=== PATIENT | female | born 1975 | race Caucasian/White ===

== ENCOUNTER 2017-10-21 22:34 | Inpatient (IN) ==
[2017-10-21] MEDS ORDERED: 0.9 % Sodium Chloride 1,000 ML ONE (22:44)
[2017-10-21] MEDS ORDERED: *HR* Rocuronium Bromide 50 MG/5 ML VIAL IVP ONE (22:49)
[2017-10-21] MEDS ORDERED: Isovue-370 500 ML INFUS..BTL IV ONE (22:50)
[2017-10-21] MEDS ORDERED: 0.9 % Sodium Chloride 1,000 ML IVC ONE (22:50)
[2017-10-21] MEDS ORDERED: *HR* Etomidate 20 MG/10 ML AMPUL IVP ONE (22:50)
[2017-10-21] MEDS ORDERED: *HR* Midazolam HCl 5 MG/5 ML VIAL IVP ONE (22:50)
[2017-10-21] MEDS ORDERED: Naloxone 0.4 MG/ML INJ IM ONE (22:57)
[2017-10-21] MEDS ORDERED: Tdap (Boostrix) Vaccine 0.5 ML SYRINGE IM ONE (22:58)
[2017-10-21] MEDS ORDERED: Piperacillin/Tazobactam 3.375 GM in 0.9 % Sodium Chloride Mini Bag 100 ML IVPB ONE (22:58)
[2017-10-21 23:13] LABS: Bilirubin,Urine Negative (Negative); Blood,Urine Moderate (Negative); Clarity,Urine Cloudy (Clear); Color,Urine Yellow (Yellow); Glucose,Urine (UA) 100 mg/dL (Normal); Ketones,Urine 15 mg/dL (Negative); Leukocyte Esterase,Urine Negative (Negative); Nitrite,Urine Negative (Negative); PH,Urine 6.5 pH Units (5.0-8.0); Protein,Urine 100 mg/dL (Neg-Trace); Specific Gravity,Urine 1.017 (1.010-1.025); Urobilinogen,Urine Normal (Normal)
[2017-10-21 23:15] LABS: Bacteria,Urine Moderate per hpf (None-Few); Hyaline Casts,Urine Few per lpf (None-Few); Squamous Epithelial Cell,Urine Many per lpf (None-Few)
[2017-10-21 23:19] LABS: Amphetamine Screen,Urine Positive ng/mL (Cutoff=1000); Barbiturate Screen,Urine Negative ng/mL (Cutoff=200); Benzodiazepines Screen,Urine Positive ng/mL (Cutoff=200); Cannabinoid Screen,Urine Positive ng/mL (Cutoff = 50); Cocaine Screen,Urine Positive ng/mL (Cutoff= 300); Opiate Screen,Urine Positive ng/mL (Cutoff=300); Phencyclidine Screen,Urine Negative ng/mL (Cutoff=25)
--- NOTE | 2017-10-21 23:21 | Emergency Department Note ---
Overdose - [facility] Narrative Medical decision making narrative: Tamie Powell presents due to concern for overdose. Initially dropped off in a car. Initial GCS of 3 with apneic respirations. Response to Narcan however she was combative/encephalopathic and required restraint necessitating intubation for airway protection and encephalopathy. CT head and cervical spine negative. Labs reviewed with no acute derangements. Vancomycin for skin findings, Zosyn due to concern for aspiration given her mental status. Extravasation of contrast into her left arm. Admission to the intensive care unit for further management. - Lab Data Lab results reviewed: Yes I reviewed the patient's lab results. Result diagrams: 10/21/17 22:50 10/22/17 01:07 Lab Results 10/21/17 10/21/17 10/21/17 Range/Units 22:47 22:50 22:50 WBC 12.7 H (4.3-11.1) K/mcL RBC 4.02 (3.82-4.97) M/mcL Hgb 12.3 (11.5-15.4) g/dL Hct 36.3 (35.3-44.9) % MCV 90.3 (83.0-100.0) fL MCH 30.6 (28.0-33.3) pg MCHC 33.9 (31.6-35.5) g/dL RDW 12.9 (11.5-14.5) % Plt Count 238 (140-400) K/mcL MPV 10.3 (9.4-12.4) fL Immature Gran % 0.9 (0-4) % Seg Neutrophils % 79.5 % Lymphocytes % 10.4 % Monocytes % 6.1 % Eosinophils % 2.6 % Basophils % 0.5 % Neutrophils # 10.1 H (1.6-8.9) K/mcL Lymphocytes # 1.3 (0.6-4.6) K/mcL Monocytes # 0.8 (0.0-1.3) K/mcL Eosinophils # 0.3 (0.0-0.6) K/mcL Basophils # 0.1 (0.0-0.2) K/mcL Sodium Cancelled Potassium Cancelled Chloride Cancelled Carbon Dioxide Cancelled BUN Cancelled Creatinine Cancelled Est GFR ( Amer) Cancelled Est GFR (Non-Af Amer) Cancelled BUN/Creatinine Ratio Cancelled Glucose Cancelled POC Glucose 249 H (70-99) mg/dL Calculated Osmolality Cancelled Lactic Acid (0.5-2.2) mmol/L Calcium Cancelled Total Bilirubin Cancelled Direct Bilirubin Cancelled Indirect Bilirubin Cancelled AST Cancelled ALT Cancelled Alkaline Phosphatase Cancelled Creatine Kinase Cancelled Serum Total Protein Cancelled Albumin Cancelled Globulin Cancelled Albumin/Globulin Ratio Cancelled TSH 2.445 (0.340-5.600) mcIU/mL Urine Color (Yellow) Urine Clarity (Clear) Urine pH (5.0-8.0) pH Units Ur Specific [place] (1.010-1.025) Urine Protein (Neg-Trace) mg/dL Urine Glucose (UA) (Normal) mg/dL Urine Ketones (Negative) mg/dL Urine Blood (Negative) Urine Nitrite (Negative) Urine Bilirubin (Negative) Urine Urobilinogen (Normal) mg/dL Ur Leukocyte Esterase (Negative) Urine Microscopic RBC (0-3) per hpf Urine Microscopic WBC (0-3) per hpf Ur Squamous Epith Cells (None-Few) per lpf Urine Bacteria (None-Few) per hpf Hyaline Casts (None-Few) per lpf Urine Test (Negative) Salicylates < 2.5 L (15.0-30.0) mg/dL Urine Opiates Screen (Lhcfgn=336) ng/mL Acetaminophen < 10 L (10-20) mcg/mL Ur Barbiturates Screen (Vwzqrn=587) ng/mL Ur Phencyclidine Scrn (Cutoff=25) ng/mL Ur Amphetamines Screen (Zaivam=3023) ng/mL U Benzodiazepines Scrn (Oighjs=720) ng/mL Urine Cocaine Screen (Cutoff= 300) ng/mL U Marijuana (THC) Screen (Cutoff = 50) ng/mL Ethyl Alcohol < 10 (Less than 10) mg/dL Specimen Rejected 10/21/17 10/21/17 10/21/17 Range/Units 23:02 23:02 23:02 WBC (4.3-11.1) K/mcL RBC (3.82-4.97) M/mcL Hgb (11.5-15.4) g/dL Hct (35.3-44.9) % MCV (83.0-100.0) fL MCH (28.0-33.3) pg MCHC (31.6-35.5) g/dL RDW (11.5-14.5) % Plt Count (140-400) K/mcL MPV (9.4-12.4) fL Immature Gran % (0-4) % Seg Neutrophils % % Lymphocytes % % Monocytes % % Eosinophils % % Basophils % % Neutrophils # (1.6-8.9) K/mcL Lymphocytes # (0.6-4.6) K/mcL Monocytes # (0.0-1.3) K/mcL Eosinophils # (0.0-0.6) K/mcL Basophils # (0.0-0.2) K/mcL Sodium Potassium Chloride Carbon Dioxide BUN Creatinine Est GFR ( Amer) Est GFR (Non-Af Amer) BUN/Creatinine Ratio Glucose POC Glucose (70-99) mg/dL Calculated Osmolality Lactic Acid (0.5-2.2) mmol/L Calcium Total Bilirubin Direct Bilirubin Indirect Bilirubin AST ALT Alkaline Phosphatase Creatine Kinase Serum Total Protein Albumin Globulin Albumin/Globulin Ratio TSH (0.340-5.600) mcIU/mL Urine Color Yellow (Yellow) Urine Clarity Cloudy A (Clear) Urine pH 6.5 (5.0-8.0) pH Units Ur Specific [place] 1.017 (1.010-1.025) Urine Protein 100 H (Neg-Trace) mg/dL Urine Glucose (UA) 100 H (Normal) mg/dL Urine Ketones 15 H (Negative) mg/dL Urine Blood Moderate H (Negative) Urine Nitrite Negative (Negative) Urine Bilirubin Negative (Negative) Urine Urobilinogen Normal (Normal) mg/dL Ur Leukocyte Esterase Negative (Negative) Urine Microscopic RBC 5-15 H (0-3) per hpf Urine Microscopic WBC 5-15 H (0-3) per hpf Ur Squamous Epith Cells Many H (None-Few) per lpf Urine Bacteria Moderate H (None-Few) per hpf Hyaline Casts Few (None-Few) per lpf Urine Test Negative (Negative) Salicylates (15.0-30.0) mg/dL Urine Opiates Screen Positive H (Wzoyot=513) ng/mL Acetaminophen (10-20) mcg/mL Ur Barbiturates Screen Negative (Pqefns=736) ng/mL Ur Phencyclidine Scrn Negative (Cutoff=25) ng/mL Ur Amphetamines Screen Positive H (Gbgjpb=5357) ng/mL U Benzodiazepines Scrn Positive H (Omqoev=028) ng/mL Urine Cocaine Screen Positive H (Cutoff= 300) ng/mL U Marijuana (THC) Screen Positive H (Cutoff = 50) ng/mL Ethyl Alcohol (Less than 10) mg/dL Specimen Rejected 10/21/17 10/21/17 10/22/17 Range/Units 23:15 23:15 01:07 WBC (4.3-11.1) K/mcL RBC (3.82-4.97) M/mcL Hgb (11.5-15.4) g/dL Hct (35.3-44.9) % MCV (83.0-100.0) fL MCH (28.0-33.3) pg MCHC (31.6-35.5) g/dL RDW (11.5-14.5) % Plt Count (140-400) K/mcL MPV (9.4-12.4) fL Immature Gran % (0-4) % Seg Neutrophils % % Lymphocytes % % Monocytes % % Eosinophils % % Basophils % % Neutrophils # (1.6-8.9) K/mcL Lymphocytes # (0.6-4.6) K/mcL Monocytes # (0.0-1.3) K/mcL Eosinophils # (0.0-0.6) K/mcL Basophils # (0.0-0.2) K/mcL Sodium 135 L Potassium 5.1 Chloride 106 Carbon Dioxide 21 L BUN 8 Creatinine 0.68 Est GFR ( Amer) > 60 Est GFR (Non-Af Amer) > 60 BUN/Creatinine Ratio 12 Glucose 111 H POC Glucose (70-99) mg/dL Calculated Osmolality 279 L Lactic Acid 1.8 (0.5-2.2) mmol/L Calcium 8.2 L Total Bilirubin 1.0 Direct Bilirubin 0.3 H Indirect Bilirubin 0.7 AST 127 H ALT 92 H Alkaline Phosphatase 75 Creatine Kinase 530 H Serum Total Protein 6.9 Albumin 3.5 Globulin 3.4 Albumin/Globulin Ratio 1.0 L TSH (0.340-5.600) mcIU/mL Urine Color (Yellow) Urine Clarity (Clear) Urine pH (5.0-8.0) pH Units Ur Specific [place] (1.010-1.025) Urine Protein (Neg-Trace) mg/dL Urine Glucose (UA) (Normal) mg/dL Urine Ketones (Negative) mg/dL Urine Blood (Negative) Urine Nitrite (Negative) Urine Bilirubin (Negative) Urine Urobilinogen (Normal) mg/dL Ur Leukocyte Esterase (Negative) Urine Microscopic RBC (0-3) per hpf Urine Microscopic WBC (0-3) per hpf Ur Squamous Epith Cells (None-Few) per lpf Urine Bacteria (None-Few) per hpf Hyaline Casts (None-Few) per lpf Urine Test (Negative) Salicylates (15.0-30.0) mg/dL Urine Opiates Screen (Mpdcjk=077) ng/mL Acetaminophen (10-20) mcg/mL Ur Barbiturates Screen (Ktaerv=298) ng/mL Ur Phencyclidine Scrn (Cutoff=25) ng/mL Ur Amphetamines Screen (Fksizr=6748) ng/mL U Benzodiazepines Scrn (Qyqtgm=568) ng/mL Urine Cocaine Screen (Cutoff= 300) ng/mL U Marijuana (THC) Screen (Cutoff = 50) ng/mL Ethyl Alcohol (Less than 10) mg/dL Specimen Rejected Hemolyzed - Radiology Data Radiology results reviewed: Yes I reviewed the patient's radiology results. Chest X-Ray 10/22/17 01:36 IMPRESSION: Appropriate positioning of tubes. No acute pulmonary finding. D/ / Tim Robles MD / Tim Robles MD Interpreting Provider: Tim Robles MD Cervical Spine CT 10/22/17 22:50 IMPRESSION: 1. No acute abnormality of the cervical spine. 2. Airspace changes are partially observed in the chest, likely corresponding to history of overdose. D/ / Tim Robles MD / Tim Robles MD Interpreting Provider: Tim Robles MD Head CT 10/22/17 22:50 IMPRESSION: No acute intracranial abnormality. D/ / Tim Robles MD / Tim Robles MD Interpreting Provider: Tim Robles MD - EKG Data EKG attestation: Yes I reviewed and interpreted this EKG. EKG results narrative: EKG demonstrates sinus tachycardia rate 102. Normal axis. Normal intervals. Normal R-wave progression. No gross ST elevations or depressions. No acute ischemic findings. Overdose HPI - General Chief Complaint: ED Overdose Stated Complaint: OD Time Seen by Provider: 10/21/17 22:49 Mode of arrival: private vehicle Limitations: altered mental status Nursing Notes Reviewed: Yes Vital Signs Reviewed: Yes - History of Present Illness HPI Narrative: Unknown female presents to the ER due to concern for overdose. We were called to the parking lot as the patient was unresponsive. She was pulled out of a car which then immediately left. She is noted to have agonal respirations upon arrival with a GCS of 3. Patient received a total of 6 mg of Narcan intranasal , IM and IV. She did have some response however she then became belligerent and was a threat to herself as well as everyone in the room. She was unable to provide any history. Remained encephalopathic. Patient intubated for airway securement and for protection. - Related Data Allergies Allergy/AdvReac Type Severity Reaction Status Date / Time Unable to Assess Allergy Unverified 10/21/17 22:48 Limitations: ROS unobtainable due to patients medical condition Past Medical History - Past Medical History Source: unable to obtain Medical history: Reports: other - Social History Smoking Status: Current every day smoker Smokeless Tobacco Status: No Alcohol use: Reports: unknown Drug use: Reports: opiates Physical Exam - General Limitations: altered mental status General appearance: obtunded, in distress - Head Head exam: atraumatic, normocephalic - Eye Eye exam: Present: normal appearance, miosis - ENT ENT exam: normal exam - Neck Neck exam: Present: normal inspection - Chest Chest inspection: Present: normal inspection, symmetric chest wall rise - Respiratory Respiratory exam: Present: normal lung sounds bilaterally - Cardiovascular Cardiovascular exam: Present: regular rate, normal rhythm, normal heart sounds - Abdominal Exam Abdominal exam: Present: soft. Absent: distention, rigidity - Extremities Exam Extremities exam: Present: normal inspection - Expanded Upper Extremity Exam Shoulder exam: Present: normal inspection Arm exam: Present: normal inspection Elbow exam: Present: normal inspection Forearm/Wrist exam: Present: normal inspection Hand exam: Present: normal inspection - Expanded Lower Extremity Exam Hip/Pelvis exam: Present: normal inspection Upper leg exam: Present: normal inspection Knee exam: Present: normal inspection Lower leg exam: Present: normal inspection Ankle exam: Present: normal inspection Foot/toe exam: Present: normal inspection - Neurological Exam Neurological exam: Present: other (GCS 3.) - Skin Skin exam: Present: other (Numerous track small and picking areas from the upper and lower extremities) Course Course Narrative: Patient seen and examined at time of arrival. Obtunded. GCS 3. Response to Narcan however still encephalopathic. Intubated for protection and airway securement. Given unknown circumstance we will proceed with CT head and cervical spine as well as angiogram of the chest abdomen and pelvis, labs, urinalysis, broad-spectrum antibiotics. - Reevaluation(s) Reevaluation #1: Infiltration of contrast into the left arm. Hyaluronidase ordered. Difficult to obtain peripheral access. We will hold on major gram at this time as trauma seems less suspicious. Vital Signs Respiratory Rate 16 10/21/17 22:34 O2 Sat by Pulse Oximetry 100 10/21/17 22:34 Temperature 98 F 10/22/17 03:34 Pulse Rate 64 10/22/17 04:00 Respiratory Rate 16 10/22/17 04:00 Blood Pressure 129/89 10/22/17 04:00 O2 Sat by Pulse Oximetry 95 10/22/17 04:00 Oxygen Delivery Oxygen Delivery Ventilator Disposition Clinical Impression: Drug overdose, Encephalopathy, Positive urine drug screen Disposition: Admitted As Inpatient Condition: Fair Attestation Statement - Attestation Attestation: I examined this patient and my medical decision-making was reviewed with the Resident Physician. I agree with the documented findings, disposition and treatment plan as described except to the extent set forth below. Patient arrives from personal vehicle unresponsive cyanotic and apneic with multiple excoriated lesions. She received intranasal Narcan as well as [id number] ventilations however did not respond. Intramuscular Narcan was given while IV access was obtained. She did not respond to this. She additionally received IV Narcan and then became extremely agitated without appropriate mentation. She was thrashing around in the bed. She was making loud animallike noises. She ultimately required emergent intubation for airway protection. She was tran positive on urine drug screen. She was sedated with both modalities lab as well as propofol. Hemodynamically she remained stable and she was covered for possible infectious etiologies by both aspiration as well as skin picking. The patient will be admitted to the intensive care unit for ventilatory management and altered mental status. I spent greater than 90 minutes of critical care time resuscitating this acutely ill patient suffering from altered mental status requiring intubation and mechanical ventilation. This was excluding billable procedures.
[2017-10-21 23:26] LABS: Basophils # 0.1 K/mcL (0.0-0.2); Basophils % 0.5 %; Eosinophils # 0.3 K/mcL (0.0-0.6); Eosinophils % 2.6 %; Hematocrit 36.3 % (35.3-44.9); Hemoglobin 12.3 g/dL (11.5-15.4); Immature Granulocytes % 0.9 % (0-4); Lymphocytes # 1.3 K/mcL (0.6-4.6); Lymphocytes % 10.4 %; Mean Corpuscular HGB Conc 33.9 g/dL (31.6-35.5); Mean Corpuscular Hemoglobin 30.6 pg (28.0-33.3); Mean Corpuscular Volume 90.3 fL (83.0-100.0); Mean Platelet Volume 10.3 fL (9.4-12.4); Monocytes # 0.8 K/mcL (0.0-1.3); Monocytes % 6.1 %; Neutrophils # 10.1 K/mcL (1.6-8.9); Platelet Count 238 K/mcL (140-400); Red Blood Count 4.02 M/mcL (3.82-4.97); Red Cell Distribution Width 12.9 % (11.5-14.5); Segmented Neutrophils % 79.5 %
--- NOTE | 2017-10-21 23:37 | Emergency Department Note ---
Overdose - Lab Data Result diagrams: 10/21/17 22:50 Lab Results 10/21/17 10/21/17 10/21/17 Range/Units 22:50 23:02 23:02 WBC 12.7 H (4.3-11.1) K/mcL RBC 4.02 (3.82-4.97) M/mcL Hgb 12.3 (11.5-15.4) g/dL Hct 36.3 (35.3-44.9) % MCV 90.3 (83.0-100.0) fL MCH 30.6 (28.0-33.3) pg MCHC 33.9 (31.6-35.5) g/dL RDW 12.9 (11.5-14.5) % Plt Count 238 (140-400) K/mcL MPV 10.3 (9.4-12.4) fL Immature Gran % 0.9 (0-4) % Seg Neutrophils % 79.5 % Lymphocytes % 10.4 % Monocytes % 6.1 % Eosinophils % 2.6 % Basophils % 0.5 % Neutrophils # 10.1 H (1.6-8.9) K/mcL Lymphocytes # 1.3 (0.6-4.6) K/mcL Monocytes # 0.8 (0.0-1.3) K/mcL Eosinophils # 0.3 (0.0-0.6) K/mcL Basophils # 0.1 (0.0-0.2) K/mcL Urine Color Yellow (Yellow) Urine Clarity Cloudy A (Clear) Urine pH 6.5 (5.0-8.0) pH Units Ur Specific [place] 1.017 (1.010-1.025) Urine Protein 100 H (Neg-Trace) mg/dL Urine Glucose (UA) 100 H (Normal) mg/dL Urine Ketones 15 H (Negative) mg/dL Urine Blood Moderate H (Negative) Urine Nitrite Negative (Negative) Urine Bilirubin Negative (Negative) Urine Urobilinogen Normal (Normal) mg/dL Ur Leukocyte Esterase Negative (Negative) Urine Microscopic RBC 5-15 H (0-3) per hpf Urine Microscopic WBC 5-15 H (0-3) per hpf Ur Squamous Epith Cells Many H (None-Few) per lpf Urine Bacteria Moderate H (None-Few) per hpf Hyaline Casts Few (None-Few) per lpf Urine Test Negative (Negative) Urine Opiates Screen (Ssttpr=771) ng/mL Ur Barbiturates Screen (Nozkhd=683) ng/mL Ur Phencyclidine Scrn (Cutoff=25) ng/mL Ur Amphetamines Screen (Nwgupm=9605) ng/mL U Benzodiazepines Scrn (Ecsldu=233) ng/mL Urine Cocaine Screen (Cutoff= 300) ng/mL U Marijuana (THC) Screen (Cutoff = 50) ng/mL 10/21/17 Range/Units 23:02 WBC (4.3-11.1) K/mcL RBC (3.82-4.97) M/mcL Hgb (11.5-15.4) g/dL Hct (35.3-44.9) % MCV (83.0-100.0) fL MCH (28.0-33.3) pg MCHC (31.6-35.5) g/dL RDW (11.5-14.5) % Plt Count (140-400) K/mcL MPV (9.4-12.4) fL Immature Gran % (0-4) % Seg Neutrophils % % Lymphocytes % % Monocytes % % Eosinophils % % Basophils % % Neutrophils # (1.6-8.9) K/mcL Lymphocytes # (0.6-4.6) K/mcL Monocytes # (0.0-1.3) K/mcL Eosinophils # (0.0-0.6) K/mcL Basophils # (0.0-0.2) K/mcL Urine Color (Yellow) Urine Clarity (Clear) Urine pH (5.0-8.0) pH Units Ur Specific [place] (1.010-1.025) Urine Protein (Neg-Trace) mg/dL Urine Glucose (UA) (Normal) mg/dL Urine Ketones (Negative) mg/dL Urine Blood (Negative) Urine Nitrite (Negative) Urine Bilirubin (Negative) Urine Urobilinogen (Normal) mg/dL Ur Leukocyte Esterase (Negative) Urine Microscopic RBC (0-3) per hpf Urine Microscopic WBC (0-3) per hpf Ur Squamous Epith Cells (None-Few) per lpf Urine Bacteria (None-Few) per hpf Hyaline Casts (None-Few) per lpf Urine Test (Negative) Urine Opiates Screen Positive H (Apkedh=494) ng/mL Ur Barbiturates Screen Negative (Mpnqqr=234) ng/mL Ur Phencyclidine Scrn Negative (Cutoff=25) ng/mL Ur Amphetamines Screen Positive H (Ttyrie=8730) ng/mL U Benzodiazepines Scrn Positive H (Vchtem=620) ng/mL Urine Cocaine Screen Positive H (Cutoff= 300) ng/mL U Marijuana (THC) Screen Positive H (Cutoff = 50) ng/mL Overdose HPI - General Chief Complaint: ED Overdose Stated Complaint: OD Time Seen by Provider: 10/21/17 22:49 Mode of arrival: private vehicle Limitations: altered mental status - History of Present Illness HPI Narrative: This note was placed for procedure note for intubation. Refer to history of present illness, physical exam, medical decision-making, and disposition from other notes. - Related Data Allergies Allergy/AdvReac Type Severity Reaction Status Date / Time Unable to Assess Allergy Unverified 10/21/17 22:48 Past Medical History - Past Medical History Medical history: Reports: other - Social History Smoking Status: Current every day smoker Smokeless Tobacco Status: No Alcohol use: Reports: unknown Drug use: Reports: opiates Physical Exam - General Limitations: altered mental status General appearance: obtunded, in distress Course Vital Signs Temperature 98.2 F 10/21/17 22:37 Pulse Rate 96 10/21/17 22:37 Respiratory Rate 4 10/21/17 22:37 Blood Pressure 88/78 10/21/17 22:37 O2 Sat by Pulse Oximetry 100 10/21/17 22:37 Temperature 98.2 F 10/21/17 22:37 Pulse Rate 94 10/21/17 23:27 Respiratory Rate 18 10/21/17 23:27 Blood Pressure 160/105 10/21/17 23:27 O2 Sat by Pulse Oximetry 100 10/21/17 23:27 Oxygen Delivery Oxygen Delivery Ventilator Procedures - Intubation sedative: Etomidate Mg Given: 20 paralytic: Rocuronium Mg Given: 100 Laryngoscope: Daphney ET Tube Size: Oral ET Tube Uncuffed: No Tube Secured Location: lips Tube Placement Confirmation: visualized tube passing through cords, equal breath sounds bilaterally, confirmation by capnometry Patient Tolerated Procedure: well, no complications Intubation Complications: none Disposition Clinical Impression: Drug overdose Qualifiers: Encounter type: initial encounter Injury intent: undetermined intent Qualified Code(s): T50.904A - Poisoning by unspecified drugs, medicaments and biological substances, undetermined, initial encounter Disposition: Still a Patient Referrals: NONE,PCP [Primary Care Provider] - Forms: ED Satisfaction Letter
[2017-10-21 23:53] LABS: Acetaminophen < 10 mcg/mL (10-20)
[2017-10-21 23:56] LABS: Ethanol < 10 mg/dL (Less than 10); Salicylate < 2.5 mg/dL (15.0-30.0)
[2017-10-22 00:06] LABS: Thyroid Stimulating Hormone 2.445 mcIU/mL (0.340-5.600)
[2017-10-22 01:33] LABS: Alanine Aminotransferase 92 Units/L (7-52); Albumin 3.5 g/dL (3.5-5.7); Alkaline Phosphatase 75 Units/L (34-104); Aspartate Amino Transferase 127 Units/L (13-39); BUN/Creatinine Ratio 12 (6-26); Bilirubin,Direct 0.3 mg/dL (0.0-0.2); Bilirubin,Indirect 0.7 mg/dL (0.0-1.2); Blood Urea Nitrogen 8 mg/dL (8-23); Calcium 8.2 mg/dL (8.6-10.3); Carbon Dioxide 21 mEq/L (23-29); Chloride 106 mEq/L (98-107); Creatine Kinase 530 Units/L (30-223); Globulin 3.4 g/dL (2.4-3.5); Glucose 111 mg/dL (70-105); Osmolality,Calculated 279 (280-300); Potassium 5.1 mEq/L (3.5-5.1); Sodium 135 mEq/L (136-145); Total Protein 6.9 g/dL (6.4-8.9); eGFR For African Americans > 60 (> 60); eGFR For Non-African Americans > 60 (> 60)
[2017-10-22] MEDS: Propofol 500 MG/50 ML INFUS..BTL IVC SCH ×3 (01:37→06:41)
[2017-10-22] MEDS ORDERED: *HR* Midazolam HCl 5 MG/ML VIAL IVP ONE (01:46)
[2017-10-22] MEDS ORDERED: *HR* Midazolam HCl 2 MG/2 ML VIAL ONE (01:46)
--- NOTE | 2017-10-22 01:55 | Internal Med History&Physical ---
Date of Encounter: 10/22/17 Time of Encounter: 01:50 Internal Medicine - H&P: HPI Chief complaint: Unresponsive Admitted From: Emergency Dept Plans for Post Hospital Care: Home (Unresponsive) History of present illness: Ms. nguyen is a female with unknown age and past medical history as she presented to the emergency department in an unresponsive state with no identification. According to the ED staff the patient was dropped off by a car in the parking lot outside the ED and had to be rushed inside with respiratory rate of 2-4. Initial blood pressure was 88/78 and heart rate was in the 90s. She was afebrile. There was suspected some type of an overdose and the patient was given 6 mg of Narcan with to being IV, 2 IM, 2 intranasally. She eventually woke up and was thrashing and agitated and required 6 staff personnel from the ED to keep her down and had to be sedated again with IV medications and was eventually intubated for airway protection/agitation. She was started on propofol and remained on the vent with other vitals stable. Laboratory workup showed mild leukocytosis at 12.7. Normal lactic acid. AST elevated at 127 ALT at 92. CK was 530, creatinine 0.68 in BUN of 8. The patient's urine drug screen came back positive for opioids, amphetamines, benzos, cocaine, and marijuana. CT head and CT cervical spine was with no acute findings. EKG with sinus tachy. She is being admitted to the ICU for an overdose and respiratory failure requiring a ventilator. Past Med Surg Social Fam HX - Past Medical History Medical history: other - Social History Smoking Status: Current every day smoker Smokeless Tobacco Status: No Alcohol use: unknown Drug use: opiates Internal Medicine - H&P: Meds 3 Allergy/AdvReac Type Severity Reaction Status Date / Time Unable to Assess Allergy Unverified 10/21/17 22:48 ROS unobtainable: due to endotracheal tube, due to mental status - Constitutional Vitals: Temp Pulse Resp BP Pulse Ox 98.2 F 89 18 150/100 98 10/21/17 22:37 10/22/17 00:58 10/22/17 00:58 10/22/17 00:58 10/22/17 00:58 Exam: GEN: Sedated and intubated HEENT: AT, NC, No cyanosis, oral mucosa is moist, No JVD Lymphatics: No lymphadenoapthy Eyes: Extrocular muscles intact, anicteric CVS:RRR. S1, S2, No m/r/g RESP: coarse breath sounds throughou ABD: Soft, NT, ND, +BS EXT: No edema, No rashes, 2+ DP NEURO: Pupils are equal, sluggish, and reactive, patient is sedated and a complete neuro exam could not be done Internal Med - H&P Results - Labs CBC & Chem 7: 10/21/17 22:50 10/22/17 01:07 Labs: Short CBC 10/21/17 Range/Units 22:50 WBC 12.7 H (4.3-11.1) K/mcL Hgb 12.3 (11.5-15.4) g/dL Hct 36.3 (35.3-44.9) % Plt Count 238 (140-400) K/mcL Neutrophils # 10.1 H (1.6-8.9) K/mcL BMP 10/21/17 10/22/17 22:50 01:07 Sodium Cancelled 135 L Potassium Cancelled 5.1 Chloride Cancelled 106 Carbon Dioxide Cancelled 21 L BUN Cancelled 8 Creatinine Cancelled 0.68 Glucose Cancelled 111 H Calcium Cancelled 8.2 L Liver Function 10/21/17 10/22/17 Range/Units 22:50 01:07 Total Bilirubin Cancelled 1.0 Direct Bilirubin Cancelled 0.3 H AST Cancelled 127 H ALT Cancelled 92 H Alkaline Phosphatase Cancelled 75 Albumin Cancelled 3.5 Urine 10/21/17 Range/Units 23:02 Urine Color Yellow (Yellow) Urine Clarity Cloudy A (Clear) Urine pH 6.5 (5.0-8.0) pH Units Ur Specific Clarkson 1.017 (1.010-1.025) Urine Protein 100 H (Neg-Trace) mg/dL Urine Glucose (UA) 100 H (Normal) mg/dL - Impressions ITS Impressions Cervical Spine CT 10/22/17 22:50 IMPRESSION: 1. No acute abnormality of the cervical spine. 2. Airspace changes are partially observed in the chest, likely corresponding to history of overdose. D/ / Tim Robles MD / Tim Robles MD Interpreting Provider: Tim Robles MD Head CT 10/22/17 22:50 IMPRESSION: No acute intracranial abnormality. D/ / Tim Robles MD / Tim Robles MD Interpreting Provider: Tim Robles MD - Assessment and plan (1) Acute respiratory failure Current Visit: Yes Status: Acute Assessment and plan: Patient is status post intubation. We will obtain an ABG. Check a chest x-ray for positioning of the tube. Continue with sedation for now we will consult the event manager see the patient morning. Qualifiers: Respiratory failure complication: unspecified whether with hypoxia or hypercapnia Qualified Code(s): J96.00 - Acute respiratory failure, unspecified whether with hypoxia or hypercapnia (2) Leukocytosis Current Visit: Yes Status: Acute Assessment and plan: Likely reactive. Patient is afebrile. We will monitor. The patient does have signs of skin excoriation from picking at her skin throughout her body. She is received a dose of vancomycin in the ED and Zosyn. We will continue vancomycin for now. We will check a chest x-ray rule out an infiltrate/aspiration and if that comes back positive for an infiltrate I will start her on appropriate IV antibiotics. Qualifiers: Leukocytosis type: unspecified Qualified Code(s): D72.829 - Elevated white blood cell count, unspecified (3) Drug overdose Current Visit: Yes Status: Acute Assessment and plan: Patient likely overdosed on multiple drugs urine drug screen. Heroin may have been unmasked by Narcan and the patient ended up being agitated which I suspect is secondary to the effects of the other drugs seen on her drug screen. She is intubated now. Consult healthcare social worker for identification and drug abuse. Qualifiers: Encounter type: initial encounter Injury intent: undetermined intent Qualified Code(s): T50.904A - Poisoning by unspecified drugs, medicaments and biological substances, undetermined, initial encounter (4) Rhabdomyolysis Current Visit: Yes Status: Acute Assessment and plan: We will start the patient on IV fluids. Qualifiers: Rhabdomyolysis type: traumatic Encounter type: initial encounter Qualified Code(s): T79.6XXA - Traumatic ischemia of muscle, initial encounter (5) DVT prophylaxis Current Visit: Yes Status: Acute Assessment and plan: Heparin subcutaneous - Time Spent With Patient Total time spent is greater than 50% in coordination of care (as documented) at patient's floor/unit and/or counseling patient: Critical care time >45 min
[2017-10-22] MEDS ORDERED: Naloxone 0.4 MG/ML INJ IVP PRN (02:33)
[2017-10-22] MEDS ORDERED: Acetaminophen 325 MG TABLET PO PRN (02:33)
[2017-10-22] MEDS ORDERED: *HR* Midazolam HCl 2 MG/2 ML VIAL IVP ONE (02:53)
[2017-10-22] MEDS ORDERED: Propofol 500 MG/50 ML INFUS..BTL ONE (02:54)
[2017-10-22] MEDS ORDERED: Dextrose Gel 15 GM/37.5 ML TUBE PO PRN ×2 (04:03)
[2017-10-22] MEDS ORDERED: *HR* Dextrose 50 % in Water (Syg) 50 ML SYRINGE IVP PRN (04:03)
[2017-10-22] MEDS ORDERED: D5% in Water 1,000 ML IVC PRN (04:03)
[2017-10-22] MEDS: *HR* Heparin 5,000 UNIT/ML VIAL SQ SCH ×3 (05:46→21:03)
[2017-10-22] MEDS: Insulin LISPRO 300 UNITS/3 ML VIAL SQ SCH ×4 (07:12→23:21)
[2017-10-22] MEDS: Dexmedetomidine HCl 400 MCG/100 ML MLS IVC SCH ×2 (08:02→16:45)
[2017-10-22] MEDS ORDERED: Potassium Phosphate 44 MEQ in 0.9 % Sodium Chloride 250 ML IVPB PRN (08:27)
--- NOTE | 2017-10-22 08:27 | Pulmonology Consult Note ---
<Kaushik Marie - Last Filed: 10/22/17 09:26> Date of Encounter: 10/22/17 Time of Encounter: 08:26 Assessment and Plan (1) Acute respiratory failure Current Visit: Yes Status: Acute Patient presented here as a drug overdose she is breathing at 2-4 respirations per minute. Due to difficulty in breathing and slow respirations patient was intubated with etomidate and rocuronium placed on the ventilator. Chest x-ray showed the ET tube was about 4-5 cm above the ulises there was no other acute pulmonary pathology. We will advance the ET tube 2 cm so is only 2 cm above the ulises. Patient is currently sedated with propofol. We will add Precedex to help with the drug withdrawal. Patient has difficult vascular access. She has 2 peripheral IVs one in the foot 1 in the hand. We will order an EPIV to be done for better access. Plan Ventilator management Precedex and propofol for sedation We will give patient at least 24 hours on the ventilator Qualifiers: Respiratory failure complication: unspecified whether with hypoxia or hypercapnia Qualified Code(s): J96.00 - Acute respiratory failure, unspecified whether with hypoxia or hypercapnia (2) Drug overdose Current Visit: Yes Status: Acute Patient was positive for amphetamines, opiates, benzos, marijuana, cocaine. This most likely is an underlying cause for patient's acute respiratory distress. Patient was given Narcan emergency department became very agitated this is what then caused her to be sedated and thus intubated. Plan IV hydration at 125 mL per hour of normal saline Social work consult Qualifiers: Encounter type: initial encounter Injury intent: undetermined intent Qualified Code(s): T50.904A - Poisoning by unspecified drugs, medicaments and biological substances, undetermined, initial encounter (3) Encephalopathy Current Visit: Yes Status: Acute Encephalopathy is most likely secondary to drug overdose. We will continue to monitor. plan as above (4) Rhabdomyolysis Current Visit: Yes Status: Acute Patient did have elevated creatinine kinase of 530. This most likely secondary to patient's acute response. Plan IV hydration at 125 mL per hour of normal saline Qualifiers: Rhabdomyolysis type: traumatic Encounter type: initial encounter Qualified Code(s): T79.6XXA - Traumatic ischemia of muscle, initial encounter (5) Leukocytosis Current Visit: Yes Status: Acute Patient did have a mild leukocytosis of 12.7 there was no bandemia. Patient was prepped likely started was Zosyn and vancomycin in the emergency department given 1 dose of each. Due to there being no source of infection chest x-ray showing no acute pneumonia. We will stop the antibiotics at this time. We will get blood cultures and see if they grow anything. If the Gonzalez Rocephin we will recommend starting broad-spectrum antibiotics. We will also give Tylenol if patient has a fever or if there are any signs of sepsis we will consider starting patient back on prophylactic antibiotics. Patient also has history of hepatitis C and is an IV drug user so patient is high risk therefore we will get HIV and hep C panels. These are both pending. Plan Blood cultures pending We will restart antibiotics if there are signs of infection. Qualifiers: Leukocytosis type: unspecified Qualified Code(s): D72.829 - Elevated white blood cell count, unspecified (6) Positive urine drug screen Current Visit: Yes Status: Acute Patient positive for opiates, benzos, cocaine, amphetamines, marijuana. Plan as above (7) DVT prophylaxis Current Visit: Yes Status: Acute Heparin subcutaneous History of Present Illness Consult date: 10/22/17 Requesting physician: Donna James Reason for consult: other (Critical care and ventilator management) Chief complaint: Overdose History of present illness: Mrs. Kevin is a 42-year-old female that presented to the emergency department on in the evening where she was dropped off by her unidentified people at the front door and then they drove off. Patient was breathing at 2-4 times per minute. Her initial blood pressure was 88/78 heart rate was in the 90s. She was afebrile. Due to suspected overdose she was given 6 mg of Narcan via IV, IM, intranasal. After this she became very agitated and was thrashing around it took multiple ED staff to contain her so this time that was best to sedate her with IV medications and eventually intubated for airway protection and agitation. Patient was then placed on the ventilator. Due to being on the ventilator patient was admitted to the ICU. She was currently sedated with propofol. They used rocuronium and etomidate to sedate the patient for intubation. She does have known hepatitis C. No other chronic diseases that we know of. Urine tox strain was positive for amphetamines, cocaine, marijuana, opiates, benzos. With her response to the Narcan this is most likely was due to heroin. Patient is still sedated and intubated at this time. In the emergency department she came in as a Tamie Powell we are able to figure out identity based on her name being on her dentures. In the emergency department they also gave prophylactic antibiotics including Zosyn and vancomycin. Patient does have scabs all over her body. Most likely due from picking. Past Med Surg Social Fam HX - Past Medical History Medical history: other - Social History Smoking Status: Current every day smoker Smokeless Tobacco Status: No Alcohol use: unknown Drug use: opiates Medications and Allergies Unable To Obtain [Unable to Obtain] 10/22/17 [History] 3 Allergy/AdvReac Type Severity Reaction Status Date / Time Penicillins [PCN] Allergy See Verified 10/22/17 10:50 Comments ROS unobtainable: due to endotracheal tube All Systems: The remainder of the systems were reviewed and are negative Physical Examination Vital Signs: Vital Signs, Last 4 Hours Temp Pulse Resp BP Pulse Ox 10/22/17 07:56 16 152/97 100 10/22/17 07:30 70 16 152/97 100 10/22/17 06:00 67 16 135/95 100 10/22/17 05:37 16 134/93 100 10/22/17 05:03 98 F 69 16 145/103 96 10/22/17 05:00 68 16 145/103 96 General appearance: other (Somnolent and sedated due to intubation) Eyes: nonicteric ENT: oropharynx moist Neck: supple Effort: normal Auscultation: bilateral: clear Cardiovascular: regular rate and rhythm Gastrointestinal: normoactive bowel sounds, soft, non-tender, non-distended Integumentary: other (Small erythematous wounds on arms and legs most likely due from picking. No wounds inside the crevices between fingers) Extremities: no cyanosis, no edema, no clubbing Musculoskeletal: no deformities, ROM normal pupils equal and round, motor strength normal and symmetric Ventilator Settings Ventilator Settings: Ventilator Settings, Last 8 Hours Ventilator Tidal Volume 420 Setting Ventilator Tidal Volume 420 Setting Ventilator Tidal Volume 420 Setting Ventilator Tidal Volume 420 Setting Ventilator Tidal Volume 420 Setting Ventilator Tidal Volume 420 Setting Ventilator Tidal Volume 420 Setting Ventilator Tidal Volume 420 Setting Ventilator Respiratory Rate 16 Setting Ventilator Respiratory Rate 16 Setting Ventilator Respiratory Rate 16 Setting Ventilator Respiratory Rate 16 Setting Ventilator Respiratory Rate 16 Setting Ventilator Respiratory Rate 16 Setting Ventilator Respiratory Rate 16 Setting Ventilator Respiratory Rate 16 Setting Actual Respiratory Rate 16 Actual Respiratory Rate 16 Actual Respiratory Rate 16 Actual Respiratory Rate 16 Actual Respiratory Rate 16 Actual Respiratory Rate 16 Actual Respiratory Rate 16 Actual Respiratory Rate 18 Positive End Expiratory 5 Pressure Positive End Expiratory 5 Pressure Positive End Expiratory 5 Pressure Positive End Expiratory 5 Pressure Positive End Expiratory 5 Pressure Positive End Expiratory 5 Pressure Positive End Expiratory 5 Pressure Positive End Expiratory 5 Pressure Peak Inspiratory Airway 21 Pressure Peak Inspiratory Airway 21 Pressure Peak Inspiratory Airway 18 Pressure Peak Inspiratory Airway 19 Pressure Peak Inspiratory Airway 18 Pressure Peak Inspiratory Airway 18 Pressure Peak Inspiratory Airway 18 Pressure Peak Inspiratory Airway 27 Pressure Results - Laboratory Findings CBC and BMP: 10/21/17 22:50 10/22/17 01:07 Abnormal lab findings: Abnormal lab results WBC 12.7 K/mcL (4.3-11.1) H 10/21/17 22:50 Neutrophils # 10.1 K/mcL (1.6-8.9) H 10/21/17 22:50 Sodium 135 mEq/L (136-145) L 10/22/17 01:07 Carbon Dioxide 21 mEq/L (23-29) L 10/22/17 01:07 Glucose 111 mg/dL (70-105) H 10/22/17 01:07 Calculated Osmolality 279 (280-300) L 10/22/17 01:07 Calcium 8.2 mg/dL (8.6-10.3) L 10/22/17 01:07 Direct Bilirubin 0.3 mg/dL (0.0-0.2) H 10/22/17 01:07 AST 127 Units/L (13-39) H 10/22/17 01:07 ALT 92 Units/L (7-52) H 10/22/17 01:07 Creatine Kinase 530 Units/L (30-223) H 10/22/17 01:07 Albumin/Globulin Ratio 1.0 (1.1-2.2) L 10/22/17 01:07 Urine Clarity Cloudy (Clear) A 10/21/17 23:02 Urine Protein 100 mg/dL (Neg-Trace) H 10/21/17 23:02 Urine Glucose (UA) 100 mg/dL (Normal) H 10/21/17 23:02 Urine Ketones 15 mg/dL (Negative) H 10/21/17 23:02 Urine Blood Moderate (Negative) H 10/21/17 23:02 Urine Microscopic RBC 5-15 per hpf (0-3) H 10/21/17 23:02 Urine Microscopic WBC 5-15 per hpf (0-3) H 10/21/17 23:02 Ur Squamous Epith Cells Many per lpf (None-Few) H 10/21/17 23:02 Urine Bacteria Moderate per hpf (None-Few) H 10/21/17 23:02 Salicylates < 2.5 mg/dL (15.0-30.0) L 10/21/17 22:50 Urine Opiates Screen Positive ng/mL (Jqugjo=783) H 10/21/17 23:02 Acetaminophen < 10 mcg/mL (10-20) L 10/21/17 22:50 Ur Amphetamines Screen Positive ng/mL (Tvyzoy=9933) H 10/21/17 23:02 U Benzodiazepines Scrn Positive ng/mL (Wzizop=345) H 10/21/17 23:02 Urine Cocaine Screen Positive ng/mL (Cutoff= 300) H 10/21/17 23:02 U Marijuana (THC) Screen Positive ng/mL (Cutoff = 50) H 10/21/17 23:02 - Diagnostic Findings Chest x-ray: report reviewed, image reviewed - Clinical Findings Intake & Output: Intake & Output 10/21/17 10/22/17 10/22/17 23:59 07:59 15:59 Intake Total 100 / 100 Output Total 100 / 100 Balance 0 / 0 Weight 67.7 kg Consult Discharge Plan - Plan Referrals: NONE,PCP [Primary Care Provider] - <Guicho Cherry - Last Filed: 10/22/17 17:54> Date of Encounter: 10/22/17 All Systems: The remainder of the systems were reviewed and are negative Physical Examination Vital Signs: Vital Signs, Last 4 Hours Pulse Resp BP Pulse Ox 10/22/17 17:00 54 16 116/77 100 10/22/17 16:00 56 16 114/72 100 10/22/17 15:33 16 121/82 100 10/22/17 15:00 58 16 121/82 100 Ventilator Settings Ventilator Settings: Ventilator Settings, Last 8 Hours Ventilator Tidal Volume 420 Setting Ventilator Tidal Volume 420 Setting Ventilator Tidal Volume 420 Setting Ventilator Tidal Volume 420 Setting Ventilator Tidal Volume 420 Setting Ventilator Tidal Volume 420 Setting Ventilator Tidal Volume 420 Setting Ventilator Tidal Volume 420 Setting Ventilator Tidal Volume 420 Setting Ventilator Respiratory Rate 16 Setting Ventilator Respiratory Rate 16 Setting Ventilator Respiratory Rate 16 Setting Ventilator Respiratory Rate 16 Setting Ventilator Respiratory Rate 16 Setting Ventilator Respiratory Rate 16 Setting Ventilator Respiratory Rate 16 Setting Ventilator Respiratory Rate 16 Setting Ventilator Respiratory Rate 16 Setting Actual Respiratory Rate 16 Actual Respiratory Rate 16 Actual Respiratory Rate 16 Actual Respiratory Rate 16 Actual Respiratory Rate 16 Actual Respiratory Rate 16 Actual Respiratory Rate 16 Actual Respiratory Rate 16 Actual Respiratory Rate 16 Positive End Expiratory 5 Pressure Positive End Expiratory 5 Pressure Positive End Expiratory 5 Pressure Positive End Expiratory 5 Pressure Positive End Expiratory 5 Pressure Positive End Expiratory 5 Pressure Positive End Expiratory 5 Pressure Positive End Expiratory 5 Pressure Positive End Expiratory 5 Pressure Peak Inspiratory Airway 18 Pressure Peak Inspiratory Airway 18 Pressure Peak Inspiratory Airway 18 Pressure Peak Inspiratory Airway 19 Pressure Peak Inspiratory Airway 21 Pressure Peak Inspiratory Airway 19 Pressure Peak Inspiratory Airway 19 Pressure Peak Inspiratory Airway 21 Pressure Peak Inspiratory Airway 21 Pressure Results - Laboratory Findings CBC and BMP: 10/22/17 15:30 10/22/17 09:20 Abnormal lab findings: Abnormal lab results RBC 3.44 M/mcL (3.82-4.97) L 10/22/17 15:30 Hgb 10.5 g/dL (11.5-15.4) L D 10/22/17 15:30 Hct 30.4 % (35.3-44.9) L 10/22/17 15:30 Potassium 3.3 mEq/L (3.5-5.1) L D 10/22/17 09:20 Chloride 109 mEq/L (98-107) H 10/22/17 09:20 Carbon Dioxide 21 mEq/L (23-29) L 10/22/17 09:20 Calcium 7.2 mg/dL (8.6-10.3) L 10/22/17 09:20 Venous Ioniz Calcium 0.96 mmol/L (1.15-1.35) L 10/22/17 16:17 Phosphorus 1.4 mg/dL (2.7-4.5) L 10/22/17 11:34 Direct Bilirubin 0.3 mg/dL (0.0-0.2) H 10/22/17 11:34 AST 94 Units/L (13-39) H 10/22/17 11:34 ALT 70 Units/L (7-52) H 10/22/17 11:34 Creatine Kinase 530 Units/L (30-223) H 10/22/17 01:07 Serum Total Protein 5.6 g/dL (6.4-8.9) L 10/22/17 11:34 Albumin 3.0 g/dL (3.5-5.7) L 10/22/17 11:34 Urine Clarity Cloudy (Clear) A 10/21/17 23:02 Urine Protein 100 mg/dL (Neg-Trace) H 10/21/17 23:02 Urine Glucose (UA) 100 mg/dL (Normal) H 10/21/17 23:02 Urine Ketones 15 mg/dL (Negative) H 10/21/17 23:02 Urine Blood Moderate (Negative) H 10/21/17 23:02 Urine Microscopic RBC 5-15 per hpf (0-3) H 10/21/17 23:02 Urine Microscopic WBC 5-15 per hpf (0-3) H 10/21/17 23:02 Ur Squamous Epith Cells Many per lpf (None-Few) H 10/21/17 23:02 Urine Bacteria Moderate per hpf (None-Few) H 10/21/17 23:02 Salicylates < 2.5 mg/dL (15.0-30.0) L 10/21/17 22:50 Urine Opiates Screen Positive ng/mL (Ygrvle=997) H 10/21/17 23:02 Acetaminophen < 10 mcg/mL (10-20) L 10/21/17 22:50 Ur Amphetamines Screen Positive ng/mL (Omumhs=2352) H 10/21/17 23:02 U Benzodiazepines Scrn Positive ng/mL (Utgaon=621) H 10/21/17 23:02 Urine Cocaine Screen Positive ng/mL (Cutoff= 300) H 10/21/17 23:02 U Marijuana (THC) Screen Positive ng/mL (Cutoff = 50) H 10/21/17 23:02 - Clinical Findings Intake & Output: Intake & Output 10/22/17 10/22/17 10/22/17 07:59 15:59 23:59 Intake Total 100 / 100 100 / 100 100 / 100 Output Total 100 / 100 350 / 350 Balance 0 / 0 -250 / -250 100 / 100 Weight 67.7 kg - Attending Attestation I saw and evaluated this patient and my medical decision-making was reviewed with the Resident Physician. I agree with the documented findings, disposition and treatment plan as described except to the extent set forth below. We independently had [id number] contact with the patient I spent 40 minutes of Critical Care time with this patient. It involved decision making of high complexity to assess, manipulate, and support vital organ system failure and/or to prevent further life threatening deterioration of the patient's condition. The time involved in the performance of separately reportable procedures was not counted toward critical care time. Patient seen and examined at bedside Labs, radiology, chart personally reviewed. UPWARD BOUND DIRECTOR: Patient was very agitated will slowly transition from propfol to precedex . Poly substance overdose with opiates , cocaine , THC , Amphetamines Pulm: Patient is ventilated adjusted TV to lung protection acceptable oxygenation and ventilation Cards:Hemodynamically stable. FEN-GI: NPO Renal: Labs and output reviewed ID: Patient doesnt have any signs of infection , CXR looks clear no clinical signs of aspiration Heme/Onc:labs reviewed Endo: Glucose Monitored Integ/MSK: Skin Care per routine ICU Nursing Protocol to prevent ulcers. Lines: All lines examined without evidence of infection : Dispo: Critically ill CODE: Full Code
[2017-10-22] MEDS ORDERED: Lacri-Lube 3.5 GM TUBE BOTH EYES PRN (08:29)
[2017-10-22] MEDS ORDERED: Aminoglycoside Consult 1 EACH MC ONE (08:32)
[2017-10-22] MEDS: 0.9 % Sodium Chloride 1,000 ML IVC SCH ×2 (08:58→19:01)
[2017-10-22] MEDS: Chlorhexidine Rinse 15 ML MOUTHWASH MM SCH ×2 (08:58→20:10)
[2017-10-22] MEDS: Lacri-Lube 3.5 GM TUBE BOTH EYES SCH ×4 (08:58→23:19)
[2017-10-22] MEDS: Pantoprazole 40 MG VIAL IVP SCH (08:58)
[2017-10-22 16:10] LABS: Basophils % 0.5 %; Eosinophils # 0.2 K/mcL (0.0-0.6); Eosinophils % 2.5 %; Hematocrit 30.4 % (35.3-44.9); Hemoglobin 10.5 g/dL (11.5-15.4); Immature Granulocytes % 0.4 % (0-4); Immature Platelets 2.5 % (1.1-6.1); Lymphocytes # 1.3 K/mcL (0.6-4.6); Lymphocytes % 16.4 %; Mean Corpuscular HGB Conc 34.5 g/dL (31.6-35.5); Mean Corpuscular Hemoglobin 30.5 pg (28.0-33.3); Mean Corpuscular Volume 88.4 fL (83.0-100.0); Mean Platelet Volume 10.3 fL (9.4-12.4); Monocytes # 0.7 K/mcL (0.0-1.3); Neutrophils # 5.9 K/mcL (1.6-8.9); Platelet Count 171 K/mcL (140-400); Red Blood Count 3.44 M/mcL (3.82-4.97); Red Cell Distribution Width 13.1 % (11.5-14.5); Segmented Neutrophils % 72.2 %
[2017-10-22 16:19] LABS: VBG Ionized Calcium 0.96 mmol/L (1.15-1.35)
[2017-10-22 16:27] LABS: Albumin/Globulin Ratio 1.2 (1.1-2.2); Bilirubin,Direct 0.3 mg/dL (0.0-0.2); Bilirubin,Indirect 0.5 mg/dL (0.0-1.2); Bilirubin,Total 0.8 mg/dL (0.3-1.0); Globulin 2.6 g/dL (2.4-3.5); Phosphorous 1.4 mg/dL (2.7-4.5); Total Protein 5.6 g/dL (6.4-8.9)
[2017-10-22 16:32] LABS: Alanine Aminotransferase 70 Units/L (7-52); Albumin 2.9 g/dL (3.5-5.7); Albumin/Globulin Ratio 1.2 (1.1-2.2); Alkaline Phosphatase 60 Units/L (34-104); Aspartate Amino Transferase 94 Units/L (13-39); BUN/Creatinine Ratio 10 (6-26); Bilirubin,Total 0.8 mg/dL (0.3-1.0); Blood Urea Nitrogen 6 mg/dL (6-20); Calcium 7.2 mg/dL (8.6-10.3); Carbon Dioxide 21 mEq/L (23-29); Chloride 109 mEq/L (98-107); Globulin 2.5 g/dL (2.4-3.5); Glucose 84 mg/dL (70-105); Magnesium 1.6 mg/dL (1.6-2.6); Osmolality,Calculated 281 (280-300); Potassium 3.3 mEq/L (3.5-5.1); Sodium 137 mEq/L (136-145); Total Protein 5.4 g/dL (6.4-8.9); eGFR For African Americans > 60 (> 60); eGFR For Non-African Americans > 60 (> 60)
--- NOTE | 2017-10-22 18:12 | Event Note ---
Date of Encounter: 10/22/17 Time of Encounter: 18:06 I was called by nuse to assess pt's left eye, since it seems more sunken. When I examined her , pt is on vent, her left eye seems more flat and sunken too compare to Rt orbit / eye ball. She does have bruise around Left favian orbital region. Ordered CT of Facial bones stat Spoke to composition stone applicator Exhibit Electrician Dr. Gan, who is going to see pt's soon today. Dr. beckham recommend Unasyn for better coverage as prophylactic for favian orbital cellulites.. However pt is allergic to PCN. Will cont Vancomycin for now. Defer to Dr. Gan for further abx choice will f/u on CT of Facial bones
[2017-10-22 20:17] LABS: ABG Base Excess -2 mEq/L (-2 to 3); ABG HCO3 22 mEq/L (21-27); ABG Oxygen Saturation 99 % (95-98); ABG PCO2 36 mmHg (35-45); ABG PO2 127 mmHg (85-104); ABG TCO2 23 mEq/L (20-26); Blood Gas Modality PRVC; Blood Gas PEEP 5 cm H2O; Blood Gas Respiration Rate 16; Blood Gas VT 420 cc
--- NOTE | 2017-10-22 20:50 | Internal Medicine Consult Note ---
Date of Encounter: 10/22/17 Time of Encounter: 20:53 Internal Medicine - CN: HPI - Data of Consult Requesting Physician: Donna James Patient is on a ventilator and sedated and unresponsive for a history. Chart was reviewed and appreciated. The external examination revealed a mild swelling of the left lower eyelid and a mild ectropion of the left lower eyelid and my mild lagophthalmos of both eyes. There was injection of the conjunctiva of the left eye. The external examination was performed with a pen light and hand-held slit lamp. Her spur testing revealed mild left exotropia and left hypertropia. The pupils were equal round and reactive to light with no relative afferent pupillary defects noted. The cornea was clear in both eyes. Conjunctiva was normal in the right eye and mild injection was noted in the conjunctiva in the left eye. The anterior chamber was deep and clear in both eyes. The iris was normal in both eyes. The intraocular pressures were approximately 9 mmHg in the right eye and 11 mmHg in the left eye using the Schiotz tonometer with a 7.5 g weight. The pupils were dilated with 1% tropicamide and 2-1/2% phenylephrine drops. Following dilation of the eyes further examination revealed a clear lens and vitreous in both eyes. The optic nerve heads appeared normal with a cup-to-disc ratio of approximately 0.55 in both eyes. The macula, posterior pole, retinal vessels, and retinal periphery were normal in both eyes. Impression: 1. Mild ectropion and mild edema of the left lower eyelid. 2. Mild exotropia and left hypertropia and mild to lagophthalmos may be secondary to sedation. 3. Otherwise, no evidence of significant injury to either eye. Recommendation: Continue Lacri-Lube ointment or refresh p.m. ointment in both eyes every 4 hours while awake until patient regains full consciousness. - Consult Narrative History of present illness: Ms. Kevin is a 42 year old female Past Med Surg Social Fam HX - Past Medical History Medical history: other - Social History Smoking Status: Current every day smoker Smokeless Tobacco Status: No Alcohol use: unknown Drug use: opiates Internal Medicine - CN: Meds Unable To Obtain [Unable to Obtain] 10/22/17 [History] 3 Allergy/AdvReac Type Severity Reaction Status Date / Time Penicillins [PCN] Allergy See Verified 10/22/17 10:50 Comments Internal Medicine - CN: Exam - Constitutional Vitals: Temp Pulse Resp BP Pulse Ox 97.6 F 50 16 130/78 99 10/22/17 20:00 10/22/17 20:00 10/22/17 20:00 10/22/17 20:00 10/22/17 20:00 Internal Medicine - CN: Reslt - Labs CBC & Chem 7: 10/22/17 15:30 10/22/17 09:20 Labs: Short CBC 10/22/17 Range/Units 15:30 WBC 8.2 (4.3-11.1) K/mcL Hgb 10.5 L D (11.5-15.4) g/dL Hct 30.4 L (35.3-44.9) % Plt Count 171 (140-400) K/mcL Neutrophils # 5.9 (1.6-8.9) K/mcL BMP 10/22/17 09:20 Sodium 137 Potassium 3.3 L D Chloride 109 H Carbon Dioxide 21 L BUN 6 Creatinine 0.61 Glucose 84 Calcium 7.2 L Liver Function 10/22/17 10/22/17 Range/Units 09:20 11:34 Total Bilirubin 0.8 0.8 (0.3-1.0) mg/dL Direct Bilirubin 0.3 H (0.0-0.2) mg/dL AST 94 H 94 H (13-39) Units/L ALT 70 H 70 H (7-52) Units/L Alkaline Phosphatase 60 64 (34-104) Units/L Albumin 2.9 L 3.0 L (3.5-5.7) g/dL - ABG Interpretation ABG results: ABG ABG pH 7.40 pH Units (7.32-7.45) 10/22/17 20:14 ABG pCO2 36 mmHg (35-45) 10/22/17 20:14 ABG pO2 127 mmHg (85-104) H 10/22/17 20:14 ABG O2 Saturation 99 % (95-98) H 10/22/17 20:14 - Impressions Impressions Face CT 10/22/17 17:10 IMPRESSION: Nondisplaced bilateral nasal bone fractures. No orbital fracture. No additional facial bone fracture. D/ / 10/22/2017 19:36:14 Preston Teixeira MD / amparo Interpreting Provider: Preston Teixeira MD Cervical Spine CT 10/22/17 22:50 IMPRESSION: 1. No acute abnormality of the cervical spine. 2. Airspace changes are partially observed in the chest, likely corresponding to history of overdose. D/ / Tim Robles MD / Tim Robles MD Interpreting Provider: Tim Robles MD Head CT 10/22/17 22:50 IMPRESSION: No acute intracranial abnormality. D/ / Tim Robles MD / Tim Robles MD Interpreting Provider: Tim Robles MD Consult Discharge Plan - Plan Referrals: NONE,PCP [Primary Care Provider] -
[2017-10-22] MEDS: Ringers Solution, Lactated 1,000 ML IVC SCH (21:46)
[2017-10-23 03:20] LABS: Basophils # 0.1 K/mcL (0.0-0.2); Basophils % 0.6 %; Eosinophils # 0.2 K/mcL (0.0-0.6); Hematocrit 33.4 % (35.3-44.9); Hemoglobin 11.2 g/dL (11.5-15.4); Immature Granulocytes % 0.3 % (0-4); Immature Platelets 2.4 % (1.1-6.1); Lymphocytes # 1.1 K/mcL (0.6-4.6); Mean Corpuscular HGB Conc 33.5 g/dL (31.6-35.5); Mean Corpuscular Hemoglobin 29.2 pg (28.0-33.3); Mean Platelet Volume 9.8 fL (9.4-12.4); Monocytes # 0.8 K/mcL (0.0-1.3); Monocytes % 9.7 %; Neutrophils # 5.6 K/mcL (1.6-8.9); Platelet Count 188 K/mcL (140-400); Red Blood Count 3.84 M/mcL (3.82-4.97); Red Cell Distribution Width 13.2 % (11.5-14.5); Segmented Neutrophils % 72.4 %
[2017-10-23 03:20] LABS: VBG Ionized Calcium 1.07 mmol/L (1.15-1.35)
[2017-10-23] MEDS: Lacri-Lube 3.5 GM TUBE BOTH EYES SCH ×2 (03:35→09:13)
[2017-10-23] MEDS: Dexmedetomidine HCl 400 MCG/100 ML MLS IVC SCH ×2 (03:39→04:19)
[2017-10-23] MEDS: Ringers Solution, Lactated 1,000 ML IVC SCH (04:20)
[2017-10-23 04:46] LABS: Alanine Aminotransferase 74 Units/L (7-52); Albumin/Globulin Ratio 1.1 (1.1-2.2); Alkaline Phosphatase 61 Units/L (34-104); Aspartate Amino Transferase 105 Units/L (13-39); BUN/Creatinine Ratio 9 (6-26); Bilirubin,Total 0.8 mg/dL (0.3-1.0); Blood Urea Nitrogen 6 mg/dL (6-20); Calcium 8.1 mg/dL (8.6-10.3); Carbon Dioxide 23 mEq/L (23-29); Chloride 109 mEq/L (98-107); Globulin 2.8 g/dL (2.4-3.5); Glucose 74 mg/dL (70-105); Magnesium 1.8 mg/dL (1.6-2.6); Osmolality,Calculated 286 (280-300); Phosphorous 1.5 mg/dL (2.7-4.5); Potassium 3.5 mEq/L (3.5-5.1); Sodium 140 mEq/L (136-145); Total Protein 5.8 g/dL (6.4-8.9); eGFR For African Americans > 60 (> 60); eGFR For Non-African Americans > 60 (> 60)
[2017-10-23] MEDS: *HR* Heparin 5,000 UNIT/ML VIAL SQ SCH ×3 (05:10→21:49)
[2017-10-23] MEDS: Insulin LISPRO 300 UNITS/3 ML VIAL SQ SCH ×3 (05:11→17:40)
--- NOTE | 2017-10-23 08:05 | Pulmonology Progress Note ---
<JenniferRahulabiola M - Last Filed: 10/23/17 08:35> Date of Encounter: 10/23/17 Objective PUL Vital signs: Last Vital Signs Temp 100.0 F H 10/23/17 07:00 Pulse 71 10/23/17 07:00 Resp 26 10/23/17 07:00 BP 130/79 10/23/17 07:00 Pulse Ox 97 10/23/17 07:00 Ventilator Settings Ventilator Settings: Ventilator Settings, Last 8 Hours Ventilator Tidal Volume 420 Setting Ventilator Tidal Volume 420 Setting Ventilator Tidal Volume 420 Setting Ventilator Tidal Volume 420 Setting Ventilator Tidal Volume 420 Setting Ventilator Tidal Volume 420 Setting Ventilator Tidal Volume 420 Setting Ventilator Tidal Volume 420 Setting Ventilator Tidal Volume 420 Setting Ventilator Respiratory Rate 16 Setting Ventilator Respiratory Rate 16 Setting Ventilator Respiratory Rate 16 Setting Ventilator Respiratory Rate 16 Setting Ventilator Respiratory Rate 16 Setting Ventilator Respiratory Rate 16 Setting Ventilator Respiratory Rate 16 Setting Ventilator Respiratory Rate 16 Setting Ventilator Respiratory Rate 16 Setting Actual Respiratory Rate 26 Actual Respiratory Rate 16 Actual Respiratory Rate 16 Actual Respiratory Rate 16 Actual Respiratory Rate 16 Actual Respiratory Rate 16 Actual Respiratory Rate 16 Actual Respiratory Rate 16 Actual Respiratory Rate 17 Actual Respiratory Rate 16 Positive End Expiratory 5 Pressure Positive End Expiratory 5 Pressure Positive End Expiratory 5 Pressure Positive End Expiratory 5 Pressure Positive End Expiratory 5 Pressure Positive End Expiratory 5 Pressure Positive End Expiratory 5 Pressure Positive End Expiratory 5 Pressure Positive End Expiratory 5 Pressure Positive End Expiratory 5 Pressure Peak Inspiratory Airway 11 Pressure Peak Inspiratory Airway 18 Pressure Peak Inspiratory Airway 19 Pressure Peak Inspiratory Airway 18 Pressure Peak Inspiratory Airway 18 Pressure Peak Inspiratory Airway 18 Pressure Peak Inspiratory Airway 20 Pressure Peak Inspiratory Airway 20 Pressure Peak Inspiratory Airway 19 Pressure Peak Inspiratory Airway 20 Pressure Results - Laboratory Findings CBC and BMP: 10/23/17 03:15 10/23/17 03:00 ABG ABG pH 7.40 pH Units (7.32-7.45) 10/22/17 20:14 ABG pCO2 36 mmHg (35-45) 10/22/17 20:14 ABG pO2 127 mmHg (85-104) H 10/22/17 20:14 ABG O2 Saturation 99 % (95-98) H 10/22/17 20:14 Abnormal lab findings: Abnormal lab results Hgb 11.2 g/dL (11.5-15.4) L 10/23/17 03:15 Hct 33.4 % (35.3-44.9) L 10/23/17 03:15 ABG pO2 127 mmHg (85-104) H 10/22/17 20:14 ABG O2 Saturation 99 % (95-98) H 10/22/17 20:14 Chloride 109 mEq/L (98-107) H 10/23/17 03:00 Calcium 8.1 mg/dL (8.6-10.3) L 10/23/17 03:00 Venous Ioniz Calcium 1.07 mmol/L (1.15-1.35) L 10/23/17 03:17 Phosphorus 1.5 mg/dL (2.7-4.5) L 10/23/17 03:00 Direct Bilirubin 0.3 mg/dL (0.0-0.2) H 10/22/17 11:34 AST 105 Units/L (13-39) H 10/23/17 03:00 ALT 74 Units/L (7-52) H 10/23/17 03:00 Creatine Kinase 530 Units/L (30-223) H 10/22/17 01:07 Serum Total Protein 5.8 g/dL (6.4-8.9) L 10/23/17 03:00 Albumin 3.0 g/dL (3.5-5.7) L 10/23/17 03:00 Urine Clarity Cloudy (Clear) A 10/21/17 23:02 Urine Protein 100 mg/dL (Neg-Trace) H 10/21/17 23:02 Urine Glucose (UA) 100 mg/dL (Normal) H 10/21/17 23:02 Urine Ketones 15 mg/dL (Negative) H 10/21/17 23:02 Urine Blood Moderate (Negative) H 10/21/17 23:02 Urine Microscopic RBC 5-15 per hpf (0-3) H 10/21/17 23:02 Urine Microscopic WBC 5-15 per hpf (0-3) H 10/21/17 23:02 Ur Squamous Epith Cells Many per lpf (None-Few) H 10/21/17 23:02 Urine Bacteria Moderate per hpf (None-Few) H 10/21/17 23:02 Salicylates < 2.5 mg/dL (15.0-30.0) L 10/21/17 22:50 Urine Opiates Screen Positive ng/mL (Rmyxtm=634) H 10/21/17 23:02 Acetaminophen < 10 mcg/mL (10-20) L 10/21/17 22:50 Ur Amphetamines Screen Positive ng/mL (Erflqo=9133) H 10/21/17 23:02 U Benzodiazepines Scrn Positive ng/mL (Oukybp=976) H 10/21/17 23:02 Urine Cocaine Screen Positive ng/mL (Cutoff= 300) H 10/21/17 23:02 U Marijuana (THC) Screen Positive ng/mL (Cutoff = 50) H 10/21/17 23:02 - Clinical Findings Intake & Output: Intake & Output 10/22/17 10/23/17 10/23/17 23:59 07:59 15:59 Intake Total 1610 / 1610 1460 / 1460 Output Total 1150 / 1150 450 / 450 Balance 460 / 460 1010 / 1010 Weight 63 kg Consult Discharge Plan - Plan Referrals: NONE,PCP [Primary Care Provider] - - Attending Attestation I examined this patient and my medical decision-making was reviewed with the Resident Physician. I agree with the documented findings, disposition and treatment plan as described except to the extent set forth below. Patient seen and examined. Labs, radiology, chart personally reviewed. Agree with resident's history and physical, assessment, plan with following comments: COMMUT[employer]: Patient follows commands, Pulmonary: Acceptable oxygenation and ventilation and patient was successfully extubated. Patient to be transferred to the floor. Cardiovascular: stable GI: Nutrition per dietary and GI prophylaxis per routine Heme: DVT prophylaxis per routine Renal; urine out put and renal funtion reviewed Endorcine: blood glucose is monitored Lines: all lines checked and no evidence of infections Skin: skin care to prevent pressure ulcers per nursing routine care Patient would be at risk of complications if she does not change her lifestyle <Arnold Richard - Last Filed: 10/23/17 10:22> Date of Encounter: 10/23/17 Time of Encounter: 08:03 Assessment and Plan (1) Drug overdose Current Visit: Yes Status: Acute 1. Patient presented in acute respiratory failure secondary to suspected drug overdose. Patient was positive for opioids, amphetamines, benzodiazepines, and marijuana. Tylenol, salicylates were negative 2. Patient is awake and alert and slightly agitated when off sedation 3. Plan would be to extubate this morning Qualifiers: Encounter type: initial encounter Injury intent: undetermined intent Qualified Code(s): T50.904A - Poisoning by unspecified drugs, medicaments and biological substances, undetermined, initial encounter (2) Acute respiratory failure Current Visit: Yes Status: Acute 1. Likely secondary to acute drug overdose. Her respiratory failure has resolved, she is requiring minimal sedation, following commands, having adequate tidal volumes 2. We will extubate Qualifiers: Respiratory failure complication: unspecified whether with hypoxia or hypercapnia Qualified Code(s): J96.00 - Acute respiratory failure, unspecified whether with hypoxia or hypercapnia (3) DVT prophylaxis Current Visit: Yes Status: Acute 1. On Sub-Q heparin until extubation and then the patient should be ambulatory (4) Leukocytosis Current Visit: Yes Status: Acute 1. Had a mild leukocytosis of 12.7 and was given a dose of vancomycin and Rocephin in the emergency department. She has been afebrile and her white blood cell count is normal. Eyes. Antibiotics were stopped yesterday. No evidence of infection on chest x-ray or on exam. We will continue to monitor blood cultures and restart if necessary. Qualifiers: Leukocytosis type: unspecified Qualified Code(s): D72.829 - Elevated white blood cell count, unspecified (5) Rhabdomyolysis Current Visit: Yes Status: Acute 1. Had an elevated CK. Upon admission, likely secondary to her acute drug overdose and respiratory failure. Maintenance IV fluids were continued and do not think that this would need to be rechecked. 2. We will continue maintenance IV fluids until patient is extubated and able to take by mouth Qualifiers: Rhabdomyolysis type: traumatic Encounter type: initial encounter Qualified Code(s): T79.6XXA - Traumatic ischemia of muscle, initial encounter (6) Encephalopathy Current Visit: Yes Status: Acute 1. Likely secondary to her acute drug overdose. This has resolved. She is slightly sedated and following commands. (7) Positive urine drug screen Current Visit: Yes Status: Acute 1. Positive for opioids, benzodiazepines, amphetamines, cocaine, marijuana. 2. This is likely the cause of her acute respiratory failure and mild elevation in her CK. 3. Patient was intubated for her respiratory failure, but this has since resolved. Her mental status is back to normal. 4. Plan to extubate today and transfer to the floor Subjective Principal diagnosis: Acute respiratory failure secondary to suspected drug overdose Interval history: Patient did well overnight. She did become very agitated, requiring intermittent heavier sedation. When sedation was what she is awake and following commands with good tidal volumes. Objective PUL Vital signs: Last Vital Signs Temp 100.0 F H 10/23/17 07:00 Pulse 71 10/23/17 07:00 Resp 26 10/23/17 07:00 BP 130/79 10/23/17 07:00 Pulse Ox 97 10/23/17 07:00 General appearance: alert, agitated Eyes: nonicteric ENT: oropharynx moist Neck: supple Effort: normal Cardiovascular: regular rate and rhythm Gastrointestinal: normoactive bowel sounds, non-distended Integumentary: normal, other (Patient has multiple lesions over her arms and legs consistent with picking) Extremities: no cyanosis, no edema, no clubbing Musculoskeletal: no deformities, ROM normal normal mental status, pupils equal and round anxious Ventilator Settings Ventilator Settings: Ventilator Settings, Last 8 Hours Ventilator Tidal Volume 420 Setting Ventilator Tidal Volume 420 Setting Ventilator Tidal Volume 420 Setting Ventilator Tidal Volume 420 Setting Ventilator Tidal Volume 420 Setting Ventilator Tidal Volume 420 Setting Ventilator Tidal Volume 420 Setting Ventilator Tidal Volume 420 Setting Ventilator Tidal Volume 420 Setting Ventilator Respiratory Rate 16 Setting Ventilator Respiratory Rate 16 Setting Ventilator Respiratory Rate 16 Setting Ventilator Respiratory Rate 16 Setting Ventilator Respiratory Rate 16 Setting Ventilator Respiratory Rate 16 Setting Ventilator Respiratory Rate 16 Setting Ventilator Respiratory Rate 16 Setting Ventilator Respiratory Rate 16 Setting Actual Respiratory Rate 26 Actual Respiratory Rate 16 Actual Respiratory Rate 16 Actual Respiratory Rate 16 Actual Respiratory Rate 16 Actual Respiratory Rate 16 Actual Respiratory Rate 16 Actual Respiratory Rate 16 Actual Respiratory Rate 17 Actual Respiratory Rate 16 Positive End Expiratory 5 Pressure Positive End Expiratory 5 Pressure Positive End Expiratory 5 Pressure Positive End Expiratory 5 Pressure Positive End Expiratory 5 Pressure Positive End Expiratory 5 Pressure Positive End Expiratory 5 Pressure Positive End Expiratory 5 Pressure Positive End Expiratory 5 Pressure Positive End Expiratory 5 Pressure Peak Inspiratory Airway 11 Pressure Peak Inspiratory Airway 18 Pressure Peak Inspiratory Airway 19 Pressure Peak Inspiratory Airway 18 Pressure Peak Inspiratory Airway 18 Pressure Peak Inspiratory Airway 18 Pressure Peak Inspiratory Airway 20 Pressure Peak Inspiratory Airway 20 Pressure Peak Inspiratory Airway 19 Pressure Peak Inspiratory Airway 20 Pressure Results - Laboratory Findings CBC and BMP: 10/23/17 03:15 10/23/17 03:00 ABG ABG pH 7.40 pH Units (7.32-7.45) 10/22/17 20:14 ABG pCO2 36 mmHg (35-45) 10/22/17 20:14 ABG pO2 127 mmHg (85-104) H 10/22/17 20:14 ABG O2 Saturation 99 % (95-98) H 10/22/17 20:14 Abnormal lab findings: Abnormal lab results Hgb 11.2 g/dL (11.5-15.4) L 10/23/17 03:15 Hct 33.4 % (35.3-44.9) L 10/23/17 03:15 ABG pO2 127 mmHg (85-104) H 10/22/17 20:14 ABG O2 Saturation 99 % (95-98) H 10/22/17 20:14 Chloride 109 mEq/L (98-107) H 10/23/17 03:00 Calcium 8.1 mg/dL (8.6-10.3) L 10/23/17 03:00 Venous Ioniz Calcium 1.07 mmol/L (1.15-1.35) L 10/23/17 03:17 Phosphorus 1.5 mg/dL (2.7-4.5) L 10/23/17 03:00 Direct Bilirubin 0.3 mg/dL (0.0-0.2) H 10/22/17 11:34 AST 105 Units/L (13-39) H 10/23/17 03:00 ALT 74 Units/L (7-52) H 10/23/17 03:00 Creatine Kinase 530 Units/L (30-223) H 10/22/17 01:07 Serum Total Protein 5.8 g/dL (6.4-8.9) L 10/23/17 03:00 Albumin 3.0 g/dL (3.5-5.7) L 10/23/17 03:00 Urine Clarity Cloudy (Clear) A 10/21/17 23:02 Urine Protein 100 mg/dL (Neg-Trace) H 10/21/17 23:02 Urine Glucose (UA) 100 mg/dL (Normal) H 10/21/17 23:02 Urine Ketones 15 mg/dL (Negative) H 10/21/17 23:02 Urine Blood Moderate (Negative) H 10/21/17 23:02 Urine Microscopic RBC 5-15 per hpf (0-3) H 10/21/17 23:02 Urine Microscopic WBC 5-15 per hpf (0-3) H 10/21/17 23:02 Ur Squamous Epith Cells Many per lpf (None-Few) H 10/21/17 23:02 Urine Bacteria Moderate per hpf (None-Few) H 10/21/17 23:02 Salicylates < 2.5 mg/dL (15.0-30.0) L 10/21/17 22:50 Urine Opiates Screen Positive ng/mL (Kvfzyr=456) H 10/21/17 23:02 Acetaminophen < 10 mcg/mL (10-20) L 10/21/17 22:50 Ur Amphetamines Screen Positive ng/mL (Vpovve=6582) H 10/21/17 23:02 U Benzodiazepines Scrn Positive ng/mL (Vhneth=994) H 10/21/17 23:02 Urine Cocaine Screen Positive ng/mL (Cutoff= 300) H 10/21/17 23:02 U Marijuana (THC) Screen Positive ng/mL (Cutoff = 50) H 10/21/17 23:02 - Diagnostic Findings Chest x-ray: image reviewed - Clinical Findings Intake & Output: Intake & Output 10/22/17 10/23/17 10/23/17 23:59 07:59 15:59 Intake Total 1610 / 1610 1460 / 1460 Output Total 1150 / 1150 450 / 450 Balance 460 / 460 1010 / 1010 Weight 63 kg
[2017-10-23] MEDS: Chlorhexidine Rinse 15 ML MOUTHWASH MM SCH (09:14)
[2017-10-23 09:16] LABS: Hepatitis C Virus Antibody Reactive (Nonreactive)
[2017-10-23] MEDS: Pantoprazole 40 MG VIAL IVP SCH (10:11)
[2017-10-23] MEDS ORDERED: Dextrose Gel 15 GM/37.5 ML TUBE PO PRN ×2 (10:54)
[2017-10-23] MEDS ORDERED: Naloxone 0.4 MG/ML INJ IVP PRN (10:54)
[2017-10-23] MEDS ORDERED: Dexmedetomidine HCl 400 MCG/100 ML MLS IVC SCH (10:54)
[2017-10-23] MEDS ORDERED: D5% in Water 1,000 ML IVC PRN (10:54)
[2017-10-23] MEDS ORDERED: *HR* Dextrose 50 % in Water (Syg) 50 ML SYRINGE IVP PRN (10:54)
[2017-10-23] MEDS ORDERED: Acetaminophen 325 MG TABLET PO PRN (10:54)
[2017-10-23] MEDS ORDERED: Potassium Phosphate 44 MEQ in 0.9 % Sodium Chloride 250 ML IVPB PRN (10:54)
[2017-10-23] MEDS ORDERED: Permethrin CRM 60 GM TUBE TP ONE (11:17)
--- NOTE | 2017-10-23 17:36 | Electrocardiograph Report ---
[place] [id number] Test Date: 2017-10-21 Pat Name: Shana Kevin Department: 104 Room: 3A22 Gender: F Side Laster: GERI : 1975 Requested By: Dirk Salamanca Order Number: [id number] Reading MD: Tanesha Stephenson Measurements Intervals [place] Rate: 102 P: 42 NM: 124 QRS: 66 QRSD: 83 T: 31 QT: 381 QTc: 440 Interpretive Statements SINUS TACHYCARDIA ABNORMAL RHYTHM ECG Electronically Signed On 10-23-2017 17:34:37 EDT by Tanesha Stephenson
[2017-10-23] MEDS: Loratadine 10 MG TABLET PO SCH (21:48)
[2017-10-24] MEDS: *HR* Heparin 5,000 UNIT/ML VIAL SQ SCH ×3 (05:42→21:06)
[2017-10-24] MEDS: Loratadine 10 MG TABLET PO SCH (07:50)
[2017-10-24] MEDS ORDERED: Pantoprazole 40 MG VIAL IVP SCH (09:00)
[2017-10-24] MEDS ORDERED: Potassium Phosphate 44 MEQ in 0.9 % Sodium Chloride 250 ML IVPB ONE (14:04)
--- NOTE | 2017-10-24 19:22 | Internal Med Progress Note ---
Date of Encounter: 10/24/17 Time of Encounter: 11:00 - Assessment and plan (1) Drug overdose Current Visit: Yes Status: Acute Assessment and plan: Patient likely overdosed on multiple drugs urine drug screen. She states that she does not have a problem and does not need help Qualifiers: Encounter type: initial encounter Injury intent: undetermined intent Qualified Code(s): T50.904A - Poisoning by unspecified drugs, medicaments and biological substances, undetermined, initial encounter (2) Acute respiratory failure Current Visit: Yes Status: Acute Assessment and plan: Status post extubation and patient currently on room air Suspect secondary to drug overdose Qualifiers: Respiratory failure complication: unspecified whether with hypoxia or hypercapnia Qualified Code(s): J96.00 - Acute respiratory failure, unspecified whether with hypoxia or hypercapnia (3) DVT prophylaxis Current Visit: Yes Status: Acute Assessment and plan: Heparin subcutaneous - Time Spent With Patient Total time spent is greater than 50% in coordination of care (as documented) at patient's floor/unit and/or counseling patient: - Subjective Interval history: Patient with continued hypophosphatemia this morning and replacements order - Constitutional Vitals: Temp Pulse Resp BP Pulse Ox 98.7 F 65 15 129/81 99 10/24/17 19:02 10/24/17 19:02 10/24/17 19:02 10/24/17 19:02 10/24/17 19:02 General appearance: Present: A&O X 3, no acute distress - Respiratory Respiratory exam: Present: CTAB. Absent: accessory muscle use, rales, rhonchi, wheezes - Cardiovascular Cardiovascular exam: Present: RRR, +S1, +S2. Absent: diastolic murmur, gallop, rubs, systolic murmur Internal Medicine: Result - Labs CBC & Chem 7: 10/23/17 03:15 10/23/17 03:00 - ABG Interpretation ABG results: ABG ABG pH 7.40 pH Units (7.32-7.45) 10/22/17 20:14 ABG pCO2 36 mmHg (35-45) 10/22/17 20:14 ABG pO2 127 mmHg (85-104) H 10/22/17 20:14 ABG O2 Saturation 99 % (95-98) H 10/22/17 20:14 - Impressions Impressions Face CT 10/22/17 17:10 IMPRESSION: Nondisplaced bilateral nasal bone fractures. No orbital fracture. No additional facial bone fracture. D/ / 10/22/2017 19:36:14 Preston Teixeira MD / amparo Interpreting Provider: Preston Teixeira MD Consult Discharge Plan - Plan Referrals: NONE,PCP [Primary Care Provider] -
[2017-10-24] MEDS: lamoTRIgine 100 MG TABLET PO SCH (21:06)
[2017-10-25 03:46] LABS: Hepatitis B Surface Antigen Nonreactive (Nonreactive)
[2017-10-25] MEDS: *HR* Heparin 5,000 UNIT/ML VIAL SQ SCH (06:08)
[2017-10-25] MEDS: Loratadine 10 MG TABLET PO SCH (08:13)
[2017-10-25] MEDS: lamoTRIgine 100 MG TABLET PO SCH (08:13)
[2017-10-25 10:42] VITALS: BP 118/76
--- NOTE | 2017-10-25 10:45 | Discharge Summary ---
- NOTES TO OUTPATIENT PROVIDER Notes to Outpatient Provider: none Orders not resulted at time of discharge: Pending orders 10/22/17 15:30 HIV Qualitative PCR(Detection) Routine 10/22/17 15:50 Culture,Blood [BC] Routine Date of Encounter: 10/25/17 Time of Encounter: 11:00 - Discharge Diagnosis (1) Drug overdose Priority: Primary Status: Acute Qualifiers: Encounter type: initial encounter Injury intent: undetermined intent Qualified Code(s): T50.904A - Poisoning by unspecified drugs, medicaments and biological substances, undetermined, initial encounter (2) Acute respiratory failure Priority: Primary Status: Acute Qualifiers: Respiratory failure complication: unspecified whether with hypoxia or hypercapnia Qualified Code(s): J96.00 - Acute respiratory failure, unspecified whether with hypoxia or hypercapnia Hospital course: Patient presented to the emergency department in an unresponsive state with no identification. According to the ED staff the patient was dropped off by a car in the parking lot outside the ED and had to be rushed inside with respiratory rate of 2-4. Initial blood pressure was 88/78 and heart rate was in the 90s. She was afebrile. There was suspected some type of an overdose and the patient was given 6 mg of Narcan with to being IV, 2 IM, 2 intranasally. She eventually woke up and was thrashing and agitated and required 6 staff personnel from the ED to keep her down and had to be sedated again with IV medications and was eventually intubated for airway protection/agitation. She was started on propofol and remained on the vent with other vitals stable. Laboratory workup showed mild leukocytosis at 12.7. Normal lactic acid. AST elevated at 127 ALT at 92. CK was 530, creatinine 0.68 in BUN of 8. The patient's urine drug screen came back positive for opioids, amphetamines, benzos , cocaine, and marijuana. CT head and CT cervical spine was with no acute findings. EKG with sinus tachy. She is being admitted to the ICU for an overdose and respiratory failure requiring a ventilator. During patients hospital stay she was extubated and transferred to the medical surgical floor. Patient had no further acute events and mental status returned back to baseline without any respiratory distress on room air. Patient was educated about the legal drug abuse and offered counseling/help. Patient will be discharged to follow-up with primary care provider. - Time Spent with Patient Total time spent providing and/or coordinating discharge services: Less than 30 minutes - Discharge Medications Home Medications: Buspirone HCl [Buspar] 5 mg PO TID 10/25/15 [History] Escitalopram [Lexapro] 20 mg PO DAILY 10/25/15 [History] Quetiapine Fumarate [Seroquel] 100 mg PO HS 10/25/15 [History] Albuterol Sulfate [Albuterol Inhaler] 2 puff IH Q4-6H PRN 10/23/17 [History] B Complex with Vitamin C [Elly-Bee with C] 1 each PO DAILY 10/23/17 [History] Buspirone HCl [Buspar] 10 mg PO TID 10/23/17 [History] Escitalopram [Lexapro] 20 mg PO DAILY 10/23/17 [History] Pantoprazole Sodium 40 mg PO DAILY 10/23/17 [History] Quetiapine Fumarate [Seroquel] 300 mg PO HS 10/23/17 [History] lamoTRIgine [Lamictal] 100 mg PO BID 10/23/17 [History] Allergies/Adverse Reactions: 3 Allergy/AdvReac Type Severity Reaction Status Date / Time Penicillins [PCN] Allergy See Verified 10/22/17 10:50 Comments Date of admission: 10/22/17 02:40 Primary care physician: PCP NONE Consults: 10/22/17 18:03 Consult to Physician [CONS] Routine Consulting Provider: Panchito Gan Reason for Consult: Eye injury - Sunken Left eye Time Notified: 18:05 Call Completed: Yes 10/23/17 18:38 Consult to Locker Operator [CONS] Routine Reason for SW Consult: discharge planning, possible unsafe home environment - Constitutional Vitals: Temp Pulse Resp BP Pulse Ox 98.9 F 72 16 118/76 97 10/25/17 10:41 10/25/17 10:41 10/25/17 10:41 10/25/17 10:41 10/25/17 10:41 General appearance: Present: A&O X 3, no acute distress - Respiratory Respiratory exam: Present: CTAB. Absent: accessory muscle use, rales, rhonchi, wheezes - Cardiovascular Cardiovascular exam: Present: RRR, +S1, +S2. Absent: diastolic murmur, gallop, rubs, systolic murmur - Patient Status Disposition: Home, Self-Care Condition: Fair - Discharge Instructions Follow Up With: NONE,PCP [Primary Care Provider] - (Dr. Cruz in [place]. Patient will call and make her own appt. Thank you)
== END 2017-10-25 11:58 | disposition home or self-care (01) | DRG 812 ==
LOC: EMEROO 22:34 → SUATTDRO 10-22 02:40 → EDBD 10-22 02:40 → ICNU 10-22 02:40 → MERGE 10-22 02:40 → ICNU 10-22 03:15 → 3ANU 10-23 11:50
PROVIDERS: ADMIT Internal Medicine; ATTEND Hospitalist